=== PATIENT | male | born 1995 | race Hispanic/Latino ===

== ENCOUNTER 2017-12-31 04:04 | Emergency (ER) | payer BC ==
[2017-12-31 04:29] VITALS: BP 141/78; PULSE 69; RESP 18; TEMP 98; O2SAT 100
--- NOTE | 2017-12-31 04:32 | ED PDOC ---
HPI: Psych/Substance Abuse Time Seen by Provider: 12/31/17 04:13 Chief Complaint (Nursing): Alcohol Ingestion Chief Complaint (Provider): Alcohol Ingestion ED Caveat: Intoxicated History Per: Patient, EMS History/Exam Limitations: intoxication Modifying Factor(s): Alcohol Additional Complaint(s): 22 year old male, [employer] student, arrives to ED via EMS for an evaluation of alcohol intoxication prior to arrival. Patient admits to drinking tonight but offers no complaints. PMD: none provided Past Medical History Reviewed: Historical Data, Nursing Documentation, Vital Signs Vital Signs: Last Vital Signs Temp 98 F 12/31/17 04:19 Pulse 69 12/31/17 04:19 Resp 18 12/31/17 04:19 BP 141/78 12/31/17 04:19 Pulse Ox 100 12/31/17 04:19 - Medical History PMH: No Chronic Diseases - Surgical History Surgical History: No Surg Hx - Family History Family History: States: Unknown Family Hx - Allergies Allergies/Adverse Reactions: Allergies Allergy/AdvReac Type Severity Reaction Status Date / Time No Known Allergies Allergy Verified 12/31/17 04:18 Review of Systems ROS Statement: Except As Marked, All Systems Reviewed And Found Negative Physical Exam - Reviewed Nursing Documentation Reviewed: Yes Vital Signs Reviewed: Yes - Physical Exam Appears: Positive for: Well, Non-toxic, No Acute Distress Head Exam: Positive for: ATRAUMATIC, NORMAL INSPECTION, NORMOCEPHALIC Skin: Positive for: Normal Color Eye Exam: Positive for: Normal appearance, EOMI, PERRL ENT: Positive for: Normal ENT Inspection Neck: Positive for: Normal Cardiovascular/Chest: Positive for: Regular Rate, Rhythm Respiratory: Positive for: Normal Breath Sounds. Negative for: Respiratory Distress Gastrointestinal/Abdominal: Positive for: Normal Exam, Soft. Negative for: Tenderness Extremity: Positive for: Normal ROM (upper/lower) Neurologic/Psych: Positive for: Alert (x3), Oriented (x3), Gait (steady), Other (speaking fluently). Negative for: Motor/Sensory Deficits - ECG O2 Sat by Pulse Oximetry: 100 (RA) Pulse Ox Interpretation: Normal Medical Decision Making Medical Decision Making: Initial Impression: 22 year old male with alcohol intoxication. Initial Plan: * Labs * Accucheck Time: 0 --[facility]'s family medicine resident at bedside. States he will escort patient back to campus apartment. Scribe Attestation: Documented by Rachel Horta, acting as a scribe for Johnathan Marcano MD. Provider Scribe Attestation: All medical record entries made by the Scribe were at my direction and personally dictated by me. I have reviewed the chart and agree that the record accurately reflects my personal performance of the history, physical exam, medical decision making, and the department course for this patient. I have also personally directed, reviewed, and agree with the discharge instructions and disposition. Disposition - Clinical Impression Clinical Impression: Alcohol use - Disposition Disposition: Routine/Home Disposition Time: 04:00 Condition: STABLE Instructions: Alcohol Use - When Is Drinking a Problem? Forms: [employer] (Arabic)
== END 2017-12-31 04:43 | disposition home or self-care (01) ==
LOC: H.ER 04:04
DX: F10.129 Alcohol abuse with intoxication, unspecified (principal)